=== PATIENT | female | born 1985 | race Caucasian/White ===

== ENCOUNTER 2019-12-26 00:19 | Outpatient (CLI) | payer BC, SELFPAY ==
[2019-12-26 18:28] LABS: SARS-CoV-2 RNA PCR Negative
== END 2019-12-26 00:20 | disposition home or self-care (01) ==
LOC: ANHCOVIDDT 00:19
PROVIDERS: PCP Family Medicine Sports Medicine; Visit Provider Podiatrist Foot & Ankle Surgery
DX: Z01.812 Encounter for preprocedural laboratory examination (principal); Z20.828 Contact with and (suspected) exposure to other viral communicable diseases
CPT/HCPCS: 87635; C9803; U0003

== ENCOUNTER 2019-12-28 04:02 | Day surgery (SDC) | payer BC, SELFPAY ==
[2019-12-18 14:02] VITALS: BMI 23.5
--- NOTE | 2019-12-27 10:13 | P.PNAN_ITS ---
Anes - Initial Pre Proc Eval Procedure: Operation Date: 12/28/19 07:30 Proposed Procedures p Lapidus Bunionectomy Left Foot, Reece Phalangeal Osteotomy Left Hallux - Varun Grimm JR, MD Date/Time: 12/27/19 10:13 Surgeon: Varun Grimm JR, MD Pre Op Diagnosis: Hallux Abducto Valgus Left Foot Patient Data Age: 34 Gender: F Height: 1.63 m Weight: 62.14 kg Allergies Allergy/AdvReac Type Severity Reaction Status Date / Time No Known Allergies Allergy Verified 12/28/19 06:15 Home Medications Medication Instructions Recorded Confirmed Type levothyroxine [Euthyrox] 88 mcg PO DAILY 12/18/19 12/28/19 History Patient hx anesthesia problems: none Family hx anesthesia problems: none [facility] Past Medical History Medical History (Updated 12/27/19 @ 10:13 by Yuri Stinson DO) Hypothyroidism Social History Social History Smoking status: Never smoker Living arrangements: with family Spiritual care concerns: No Anes - Eval Final PreProcedure Day of Procedure 12/27/19 10:13 Patient weight: normal Heart: regular rate and rhythm Lungs: clear to auscultation and normal air movement Airway: Mallampati scale class II Neurological: alert and oriented Last oral intake: >/= 8 hours ASA classification: II Emergent: no Anesthetic plan: proceed Anesthesia type and monitoring: general LMA and standard monitoring Informed Consent: The patient's anesthetic plan and its attendant risks and benefits were discussed with the patient/family/POA. Questions were solicited and answers provided to the satisfaction of the patient/family/POA.
--- NOTE | 2019-12-27 10:13 | WPDANESPNB ---
Anes - Peripheral Nerve Block Date/Time: 12/27/19 10:13 I have discussed with the patient/family/POA the placement of a peripheral nerve block for post-operative pain management, including associated risks, benefits, complications, and side effects. Alternative methods of post-operative analgesia were detailed. Questions were solicited and answers provided to the satisfaction of the patient/family/POA. Time-Out: A pre-procedural Time-Out was completed immediately before starting the procedure and confirmed: Patient Identification, Site, Procedure, Patient Position and the Availability of Requisite Equipment. Clinical Indications: Acute post-operative pain management requested by the operative surgeon. Nerve Block Insertion Note Anes-nerve block: posterior fossa sciatic left and adductor canal left Patient position: supine (for adductor canal) and other (right lateral for popliteal) Skin prep: chlorhexidine Needle: 22 gauge, stimulating, insulated echogenic needle. Needle length: 80 mm Technique: nerve stimulation lost at (mA) (for popliteal lost at 0.2) and ultrasound Injectate: bupivacaine 0.5% with epi 5 mcg/ml (20 mL for popliteal, 10 mL for adductor canal) Observations: tolerated well Complications: none Procedure start time:: 717 Procedure end time:: 722
[2019-12-28] VITALS (7 sets, daily range): BP systolic 110–121; BP diastolic 59–79; PULSE 65–100; RESP 14–18; TEMP 36.3–36.4; O2SAT 100
--- NOTE | ~2019-12-28 | XR_ITS ---
EXAMINATION: XR surgery orthopedic DATE: 12/28/2019 09:21 INDICATION: Left Lapidus bunionectomy, taken pharyngeal osteotomy left hallux. TECHNIQUE: Dorsal plantar and lateral fluoroscopic images of the left fore and midfoot were obtained during procedure performed by Dr. Grimm. Radiologist was not present for the imaging or procedure. The amount of fluoroscopy time used during this procedure was 2.8 minutes. COMPARISON: None. FINDINGS: Postoperative changes along the left first ray including bunionectomy with osteotomy at the medial he ad of the first metatarsal, first tarsal metatarsal arthrodesis with medial and dorsal plate and scre ws fixation, osteotomy at the base of the first proximal phalanx with medial sided staple fixation. A lignment of the first ray appears near-anatomic. No fractures. 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 Expected gas in the soft tissues at the operative beds. IMPRESSION: 1. Fluoroscopy utilized during orthopedic procedure along the left first ray. Reviewed, dictated and finalized at location A.
[2019-12-28] MEDS: LACTATED RINGERS 1,000 ML 30 ML IV CONT ×2 (06:37→09:50)
--- NOTE | 2019-12-28 07:01 | WPDHPUPDATE1 ---
History and Physical Update Update Date/Time: 12/28/19 07:01 History and Physical has been reviewed, including an updated exam of the patient. There are NO changes in the patient's condition. Risks, benefits, and alternatives have been discussed and questions answered. Patient agrees to proceed with procedure.
[2019-12-28] MEDS: ceFAZolin 2 GM/D5W 50 ML 2 GM/50 ML BAG IVPB (07:27)
[2019-12-28] MEDS: KETOROLAC 30 MG/ML VIAL (*BKC) 15 MG IV PUSH (07:43)
--- NOTE | 2019-12-28 09:48 | PM.OP ---
Procedure Note - Brief Procedure Note - Brief Date of procedure: 12/28/19 Pre-op diagnosis: Hallux Abducto Valgus Left Foot Post-op diagnosis: same Procedure performed: 1. Lapidus bunionectomy of the left foot 2. Reece phalangeal osteotomy left hallux Anesthesia: GLMA Surgeon: Varun Grimm JR, DPM Estimated blood loss (mL): 1 Complications: No immediate complications Condition: stable Disposition: same day
[2019-12-28] MEDS: ONDANSETRON INJ 4 MG/2 ML VIAL IV PUSH (11:02)
--- NOTE | 2019-12-28 14:23 | OP_ITS ---
DATE OF PROCEDURE: 12/28/2019 PREOPERATIVE DIAGNOSIS: Hallux abductovalgus deformity, left foot. POSTOPERATIVE DIAGNOSIS: Hallux abductovalgus deformity, left foot. PROCEDURE: 1. Lapidus bunionectomy of the left foot. 2. Reece phalangeal osteotomy of the left hallux. PATHOLOGY: None. ANESTHESIA: General with popliteal fossa block. HEMOSTASIS: Pneumatic ankle tourniquet at 250 mmHg. ESTIMATED BLOOD LOSS: Minimal. MATERIALS USED: One Lapiplasty 2-plate system with 8 locking screws from the Seedpost & Seedpaper System, one 8 mm Seedpost [employer] Seedpaper System compression Nitinol staple, 3-0 PDS, 2-0 Vicryl, 4-0 Vicryl, and 4-0 Monocryl. INJECTABLES: None. COMPLICATIONS: None. PROCEDURE IN DETAIL: Under mild sedation, the patient was brought into the operating room and placed on the operating table in the supine position. A pneumatic ankle tourniquet was placed about the patient's left ankle. Following general anesthesia and a previous popliteal fossa block, the left foot was then scrubbed, prepped, and draped in the usual aseptic manner. An Esmarch bandage was then used to examine the patient's left foot and the pneumatic ankle tourniquet was then inflated. Attention was directed to the dorsal aspect of the left 1st metatarsocuneiform joint to the left foot where an incision was made overlying the joint. The incision was approximately 4 cm in length. The incision was continued deep down through the subcutaneous tissues using sharp and blunt dissection. All bleeders were cauterized as necessary. At this point, the plantar medial aspect of the 1st metatarsal base was dissected free of its periosteum and capsular tissue. Next, the dorsal aspect of the 1st metatarsocuneiform joint was carefully dissected, exposing the entire base of the 1st metatarsal and anterior aspect of the medial cuneiform. A sagittal bone saw was used to feather the cartilage allowing free motion at the 1st metatarsocuneiform joint. Next, a small Steinmann pin was placed from medial to lateral across the base of the 1st metatarsal under fluoroscopy. Care was taken to make sure that complete reduction of the 1st intermetatarsal angle as well as frontal plane rotation of the 1st metatarsal head was achieved. At this point, a fulcrum was placed along the lateral aspect of the base of the 1st metatarsal in order to allow for complete correction of the three-dimensional deformity to that bunion. Next, a small 2 cm incision was made along the lateral aspect of the 1st metatarsophalangeal joint. At this point, the conjoined tendon of the adductor hallucis muscle was identified and transected. Next, a small capsular incision was made along the lateral aspect of the 1st metatarsophalangeal joint, freeing the fibular sesamoid both proximally, laterally, and distally. The track-bound hallux was noted to be reduced after a good capsular release. Next, the skin was reapproximated with 4-0 Monocryl in running subcuticular suture fashion technique. At this point, utilizing the provided Seedpost & Seedpaper Joint Preparation System, careful visualization of the joint was performed under fluoroscopy and the base of the 1st metatarsal articular cartilage as well as the anterior aspect of the medial cuneiform was resected utilizing the provided joint resection system. The position was off the position along the base of the 1st metatarsal and 2nd metatarsal through a separate stab incision. Complete 1st intermetatarsal angle reduction was performed as well as frontal plane rotation of the 1st metatarsal prior to cartilage resection. After the cartilage was resected, the joint was distracted, removing the articular surface from the 1st metatarsocuneiform joint. Next, a 2.0 mm drill bit was used to fenestrate the anterior aspect
== END 2019-12-28 11:55 | disposition home or self-care (01) ==
PROVIDERS: PCP Family Medicine Sports Medicine; Visit Provider Podiatrist Foot & Ankle Surgery
PROC: (CPT 28299; principal; 2019-12-28 07:30)
DX: M20.12 Hallux valgus (acquired), left foot (principal); G89.18 Other acute postprocedural pain; E03.9 Hypothyroidism, unspecified
CPT/HCPCS: 28297; 28298; 64445; C1713; J0690; J1100; J1885; J2250; J2405; J2704; J3010; J7120

== ENCOUNTER 2021-03-08 10:24 | Emergency (ER) | payer BC, SELFPAY ==
[2021-03-08 10:28] VITALS: BP 142/84; PULSE 107; RESP 18; TEMP 36.7; O2SAT 100
--- NOTE | 2021-03-08 11:14 | ED.ALLEREA ---
HPI - Allergic Reaction General Chief complaint: Allergic Reaction Stated complaint: Facial Swelling Time Seen by Provider: 03/08/21 11:01 Source: patient Mode of arrival: ambulatory Limitations: no limitations History of Present Illness HPI narrative: This is a 35 year old female that presents to the ER for facial swelling. Reports history of recent hives. She has been seeing [facility] in [place]. She has mostly been controlled on Zyrtec and Pepcid daily. Reports last night she started to feel some swelling in her lips. This morning when she woke up it was much worse. She also has diffuse hives. She took 50 mg of Benadryl at 9 AM without relief which prompted her to be seen. Denies dysphagia or dyspnea. Related Data Home Medications Medication Instructions Recorded Confirmed levothyroxine [Euthyrox] 88 mcg PO DAILY 12/18/19 12/28/19 Allergies Allergy/AdvReac Type Severity Reaction Status Date / Time No Known Allergies Allergy Verified 03/08/21 10:32 Review of Systems Review of Systems: CONSTITUTIONAL: Denies fever RESPIRATORY: Denies dyspnea. SKIN: Reports rash and itching. All systems reviewed & are unremarkable except as noted in HPI and below PMFSH Past Medical History Medical History (Updated 03/08/21 @ 14:30 by Bianca Castillo PA-C) Hypothyroidism Social History Social History Smoking status: Never smoker Spiritual care concerns: No Exam Narrative: GENERAL: Well-appearing, well-nourished, and in no acute distress. HEAD: Normocephalic, atraumatic. Moderate lip swelling noted EYES: EOMI. ENT: Nares clear, no rhinorrhea or epistaxis. Mucous membranes moist. Oropharynx without tonsillar hypertrophy exudate or other lesions. No tongue or throat swelling NECK: Supple. No adenopathy or masses. CHEST: Clear to auscultation. No respiratory distress. No wheezes rales or rhonchi HEART: Regular rate and rhythm. No murmur heard. Normal peripheral pulses. EXTREMITIES: Normal range of motion. No edema. SKIN: Warm, dry. Diffuse hives NEURO: No focal deficits. Alert and oriented x3. PSYCH: Normal mood and affect Course Consultations Consultation #1: Spoke with her puppet maker, Dr. Segura. Would like patient to be started on prednisone taper. She will be called tomorrow for follow-up. Date: 03/08/21 Time: 14:29 Vital Signs Vital signs: Vital Signs Temperature 98.0 F 03/08/21 10:28 Pulse Rate 107 H 03/08/21 10:28 Respiratory Rate 18 03/08/21 10:28 Blood Pressure 142/84 H 03/08/21 10:28 Pulse Oximetry 100 03/08/21 10:28 Temperature 98.0 F 03/08/21 10:28 Pulse Rate 95 03/08/21 13:26 Respiratory Rate 18 03/08/21 13:26 Blood Pressure 112/77 03/08/21 13:26 Pulse Oximetry 98 03/08/21 13:26 MDM - Allergic Reaction MDM Narrative Medical decision making narrative: Patient presents to the emergency department for hives and facial swelling since last night. Lungs are clear on exam. She denies any dysphagia or dyspnea. No swelling inside the mouth or throat. She did have some swelling of her lips and around her right eye initially. Patient given Solu-Medrol, Pepcid, and loratadine initially with some improvement. Patient then given dose of Benadryl with much improvement. Her hives are clear. No swelling around the eyes. She does still just have some mild swelling of the upper lip. Spoke with her puppet maker, Dr. Segura. Would like patient to be started on prednisone taper. She will be called tomorrow for follow-up. Patient is stable and felt appropriate for further outpatient evaluation. She was given warnings to return to the ER Critical Care Time Critical Care Time Critical Care Time: No Discharge Plan Discharge Clinical Impression: Urticaria Patient Disposition: Home, Self-Care Condition: Stable Instructions: Urticaria (ED) Additional Instructions: Return to the emergency department if you experience dif
[2021-03-08 11:17] VITALS: BP 103/82; PULSE 81; RESP 18; O2SAT 99
[2021-03-08] MEDS: FAMOTIDINE 20 MG/2 ML VIAL IV PUSH (11:17)
[2021-03-08] MEDS: LORATADINE 10 MG TABLET PO (11:17)
[2021-03-08] MEDS: methylPREDNISolone SOD SUCC 125 MG VIAL IV PUSH (11:18)
[2021-03-08 13:26] VITALS: BP 112/77; PULSE 95; RESP 18; O2SAT 98
[2021-03-08] MEDS: diphenhydrAMINE HCl INJ 50 MG/ML VIAL IV PUSH (13:26)
== END 2021-03-08 14:46 | disposition home or self-care (01) ==
PROVIDERS: Emergency Provider Emergency Medicine; PCP Family Medicine Sports Medicine
DX: L50.9 Urticaria, unspecified (principal); E03.9 Hypothyroidism, unspecified
CPT/HCPCS: 96374; 96375; 99284; A9270; J1200; J2930

== ENCOUNTER 2021-04-23 11:49 | Outpatient (CLI) | payer OTHER, SELFPAY ==
--- NOTE | ~2021-04-23 | MMUS_ITS ---
EXAMINATION: MM diagnostic maryan BI w joel, US breast BI complete HISTORY: Bloody right nipple discharge one time. TECHNIQUE: Additional 3-D tomosynthesis images of the breasts were performed and synthetic 2-D images were generated. CAD analysis was submitted and interpreted. High resolution complete bilateral breas t ultrasound was performed. COMPARISON: None BREAST PARENCHYMAL COMPOSITION: The breasts are heterogenously dense, which may obscure small masses FINDINGS: MAMMOGRAPHIC FINDINGS: Bilateral symmetric sternalis muscle noted medially on CC views. There are no suspicious masses, calc ifications or architectural distortion in either breast to suggest malignancy. ULTRASOUND: Complete bilateral US of all 4 quadrants of the breasts and retroareolar region was reviewed. Normal heterogeneous echotexture without focal solid or cystic mass. IMPRESSION: 1. No evidence for malignancy in either breast. No findings to account for bloody nipple discharge. 2. Recommend further evaluation with ductogram or MRI of the breasts for further evaluation of nipple discharge. BI-RADS Category 0: Incomplete: Needs additional imaging evaluation. Reviewed, dictated and finalized at location A. OL JUDGE IMPRESSION: 1. No evidence for malignancy in either breast. No findings to account for bloo dy nipple discharge. 2. Recommend further evaluation with ductogram or MRI of the breasts for furthe r evaluation of nipple discharge. BI-RADS Category 0: Incomplete: Needs additional imaging evaluation.
== END 2021-04-23 11:50 | disposition home or self-care (01) ==
LOC: ANHIMG 11:54
PROVIDERS: PCP Family Medicine Sports Medicine; Visit Provider Obstetrics & Gynecology
DX: N64.4 Mastodynia (principal); R92.8 Other abnormal and inconclusive findings on diagnostic imaging of breast
CPT/HCPCS: 76641; 77062; 77066; G0279

== ENCOUNTER 2022-04-05 14:18 | Observation (INO) | payer OTHER, SELFPAY ==
[2022-04-05] VITALS (7 sets, daily range): BP systolic 101–130; BP diastolic 56–77; PULSE 73–121; RESP 16–18; TEMP 36.6–36.7; O2SAT 100; BMI 22.1
--- NOTE | ~2022-04-05 | CT_ITS ---
EXAMINATION: CT abdomen pelvis w con DATE: 04/05/2022 16:32 INDICATION: rlq abd pain TECHNIQUE: Computed tomography (CT) of the abdomen and pelvis was performed with 100 mL Omnipaque-350 intravenous contrast. Automated exposure control and iterative reconstruction technique were employe d. The dose-length product was 247.67 mGy-cm. COMPARISON: None. FINDINGS: Lower thorax: Minimal dependent atelectasis Liver: Normal. Biliary/Gallbladder: Gallbladder is normal. No bile duct dilation. Pancreas: No mass or duct dilation. Spleen: Normal. Adrenals:No mass. Kidneys: Subcentimeter left lower pole hypodensity, too small to characterize but most likely represe nts a cyst. No suspicious mass, stone, or hydronephrosis. GI tract: Distal esophageal and gastric wall edema as can be seen with esophagitis/gastritis. No smal l or large bowel dilation. Dilated appendix, with surrounding inflammatory change. Intact mucosa. Mesentery/Peritoneum: No ascites, mass, or free air. Retroperitoneum: No mass. Pelvis: Pelvic organs are within normal limits. Small volume free pelvic fluid, within physiologic ra nge. Soft Tissues: Soft tissues and body wall unremarkable. Bones: No acute osseous finding. IMPRESSION: Acute uncomplicated appendicitis. Reviewed, dictated and finalized at location K. TER AND REWINDER MACHINE OPERATOR
[2022-04-05 16:09] LABS: Basophils Percent Auto 0.1 % (0.2-1.2); Hematocrit 37.2 % (37.0-47.0); Hemoglobin 11.3 g/dL (12.0-15.0); Immature Granulocyte Absolute 0.03 K/mm3 (0.00-0.031); Immature Granulocyte Percent A 0.3 % (0-0.5); Lymphocytes Absolute Auto 1.06 K/mm3 (0.9-3.2); Lymphocytes Percent Auto 9.2 % (18.3-44.2); Mean Corpuscular HGB Conc 30.4 g/dl (32-36); Mean Corpuscular Hemoglobin 23.7 pg (26-34); Mean Corpuscular Volume 78.2 fl (80-100); Mean Platelet Volume 10.3 fl (7.4-10.4); Monocytes Absolute Auto 1.2 K/mm3 (0.1-0.6); Monocytes Percent Auto 10.6 % (2.6-8.5); Neutrophils Absolute Auto 9.2 K/mm3 (1.3-6.7); Neutrophils Percent Auto 79.8 % (45.5-73.1); Platelet Count Result 322 k/mm3 (150-375); Red Blood Count 4.76 M/mm3 (4.2-5.4); Red Cell Distribution Width 18.7 % (11.5-14.5); White Blood Count 11.5 K/mm3 (4.5-10.0)
[2022-04-05 16:11] LABS: Influenza A QL RT-PCR Negative (Negative); Influenza B QL RT-PCR Negative (Negative); SARS-CoV-2 RNA PCR Negative
[2022-04-05 16:12] LABS: Appearance Urine Cloudy (Clear); Bilirubin Urine Negative (Negative); Blood Urine Trace-Intact (Negative); Glucose Urine UA Negative (Negative); Ketones Urine Negative (Negative); Leukocyte Esterase Ur 1+ LEU/UL (Negative); Nitrate Urine Negative (Negative); Protein Urine 1+ mg/dL (Negative); Specific Grav Ur >= 1.030 (1.001-1.035); Urobilinogen Urine 0.2 mg/dL (<2.0)
[2022-04-05 16:16] LABS: Add Urine Microscopic? YES; Bacteria Urine Trace /hpf; Mucus Urine Heavy /lpf; RBC Urine 21-50 /hpf (0-2); Squamous Epithelial Cell Urine Many /hpf (Few); WBC Clumps Urine Present /HPF; WBC Urine 51-75 /hpf
[2022-04-05] MEDS: SODIUM CHLORIDE 0.9% IV 1,000 ML 999 ML IV CONT (16:16)
[2022-04-05] MEDS: MORPHINE SULFATE (*CRX) 4 MG/ML INJ IV PUSH ×2 (16:16→18:59)
[2022-04-05] MEDS: ONDANSETRON INJ 4 MG/2 ML VIAL IV PUSH ×2 (16:16→20:52)
[2022-04-05 16:18] LABS: Alanine Aminotransferase 26 U/L (6-35); Albumin Level 4.8 g/dL (3.5-5.1); Alkaline Phosphatase 61 U/L (38-126); Anion Gap 7 mmol/L (8-16); Aspartate Amino Transferase 27 U/L (14-36); Bilirubin,Total 0.9 mg/dL (0.2-1.3); Blood Urea Nitrogen 9 mg/dL (7-17); Calcium 9.2 mg/dL (8.4-10.2); Carbon Dioxide 26 mmol/L (22-30); Chloride 106 mmol/L (98-107); Estimated CRCL calculation 87 ml/min; Estimated Glomerular Filt Rate > 60; Glucose 118 mg/dL (65-110); Lipase 104 U/L (23-300); Potassium 4.2 mmol/L (3.4-5.0); Sodium 139 mmol/L (137-145)
[2022-04-05 16:33] LABS: Color Urine Yellow (Yellow)
--- NOTE | 2022-04-05 16:50 | ED.ABDPAIN ---
HPI - Abdominal Pain General Chief Complaint: Nausea/Vomiting/Diarrhea Stated Complaint: abdominal pain, vomiting, headache, chills Time Seen by Provider: 04/05/22 16:08 History of Present Illness HPI narrative: Pt presents with crampy lower abdominal pain and nausea and vomiting starting at 0300 last night. Pt says the pain has localized in her RLQ and she has vomited several times. Pt denies fever or diarrhea. Related Data Home Medications Medication Instructions Recorded Confirmed levothyroxine 88 mcg tablet 88 mcg PO DAILY 12/18/19 12/28/19 (Euthyrox) sertraline 100 mg tablet (Zoloft) 100 mg PO DAILY 11/10/21 Allergies Allergy/AdvReac Type Severity Reaction Status Date / Time No Known Allergies Allergy Verified 04/05/22 17:11 Review of Systems Review of Systems: All systems reviewed & are unremarkable except as noted in HPI and below PMFSH Past Medical History Medical History Hypothyroidism Right ovarian cyst Surgical History Surgical History History of gynecological procedure D&C - missed AB History of orthopedic surgery bunion removed from L foot - 12/2019 Social History Social History (Updated 11/10/21 @ 14:56 by Ayla Mancera MA) Smoking status: Never smoker Alcohol intake: never Substance use: never Substance use type: does not use Gender identity (if verbalized by the patient): Female Sexual Orientation (if Verbalized by the Patient): Straight or Heterosexual Spiritual care concerns: No Exam Const: General: healthy appearing Nutritional Appearance: well nourished Orientation/consciousness: patient oriented x3 Limitations: no limitations Eyes: Pupils: Equal, round and reactive pupils present EOM: EOMs intact bilaterally Resp: Effort & Inspection: normal respiratory effort Auscultation: clear to auscultation bilaterally Cardio: Rate: regular rate Rhythm: regular rhythm GI: GI Palp: Yes Soft to palpation and Yes Tenderness to palpation present (GI) (rlq at [facility]) Auscultation: normal bowel sounds Skin: General skin exam: normal color Rashes: no rashes Neuro: General: patient oriented x3, moves all extremities, no meningeal signs and no focal motor deficits Speech: normal speech Extrem: General: normal to inspection and no clubbing, cyanosis or edema Psych: Mental Status: mental status grossly normal Affect: normal affect Attitude: cooperative Course Vital Signs Vital signs: Vital Signs Temperature 98.1 F 04/05/22 14:52 Pulse Rate 121 H 04/05/22 14:52 Respiratory Rate 18 04/05/22 14:52 Blood Pressure 130/77 04/05/22 14:52 Pulse Oximetry 100 04/05/22 14:52 Oxygen Delivery Room Air 04/05/22 14:52 Temperature 98.1 F 04/05/22 14:52 Pulse Rate 90 04/05/22 17:51 Respiratory Rate 18 04/05/22 17:51 Blood Pressure 116/75 04/05/22 17:51 Pulse Oximetry 100 04/05/22 17:51 Oxygen Delivery Room Air 04/05/22 14:52 MDM - Abdominal Pain MDM Narrative Medical decision making narrative: ct shows uncomplicated appendicitis, d/w dr miller, admit to him start on zosyn and will see in morning for likely appendectomy. can give clear liquids tonight Differential Diagnosis Differential diagnosis: Likely abdominal pain, acute appendicitis, constipation, gastroenteritis and small bowel obstruction Lab Data Attestation: I reviewed the patient's lab results. 04/05/22 15:59 04/05/22 15:59 Labs: Lab Results 04/05/22 04/05/22 04/05/22 Range/Units 15:23 15:59 15:59 WBC 11.5 H (4.5-10.0) K/mm3 RBC 4.76 (4.2-5.4) M/mm3 Hgb 11.3 L (12.0-15.0) g/dL Hct 37.2 (37.0-47.0) % MCV 78.2 L (80-100) fl MCH 23.7 L (26-34) pg MCHC 30.4 L (32-36) g/dl RDW 18.7 H (11.5-14.5) % Plt Count 322 (150-375) k/mm3 MPV 10.3 (7.4-10.4) fl Immature Gran % (Auto)
[2022-04-05] MEDS: AMPICILLIN SULB 3 GM/NS 100 ML 3 GM/100 ML VIAL IVPB ×2 (17:50→23:15)
[2022-04-05] MEDS: LACTATED RINGERS 1,000 ML 125 ML IV CONT (18:13)
--- NOTE | 2022-04-05 20:23 | PC.NURSE ---
report received from ED RN connie Reich to arrive at floor soon
[2022-04-06] VITALS (15 sets, daily range): BP systolic 100–133; BP diastolic 58–84; PULSE 70–105; RESP 16–22; TEMP 36.1–37.2; O2SAT 97–100
[2022-04-06] MEDS: LACTATED RINGERS 1,000 ML 125 ML IV CONT ×2 (02:15→10:54)
[2022-04-06] MEDS: AMPICILLIN SULB 3 GM/NS 100 ML 3 GM/100 ML VIAL IVPB ×3 (05:20→17:14)
--- NOTE | 2022-04-06 10:09 | PM.IMHP ---
H&P: HPI History of Present Illness Date/Time: 04/06/22 10:09 Chief Complaint: RLQ pain Narrative: This is a 36 yo woman who presented to the ED yesterday with RLQ pain that started the day before. Her pain was progressively worsening and she was experiencing nausea and vomiting. She denied any fevers or chills. She has never experienced pain like this before. Her pain was generalized and felt like she had to have a BM at first, then it localized to the RLQ. Review of Systems Review of Systems: All systems reviewed & are unremarkable except as noted in HPI and below Constitutional: Constitutional: Denies chills and Denies fever(s) Eyes: Eyes: Denies change in vision ENT: Denies hearing loss, Denies neck pain and Denies sore throat Cardiovascular: Cardiovascular: Denies chest pain and Denies dyspnea Respiratory: Respiratory: Denies cough, Denies dyspnea and Denies wheezing Gastrointestinal: Gastrointestinal: Reports as per HPI Genitourinary: Genitourinary: Denies hematuria and Denies dysuria Musculoskeletal: Musculoskeletal: Denies arthralgias, Denies joint swelling and Denies neck pain Allergic/Immunologic: Allergic/Immunologic: Denies wheezing PMFSH Past Medical History Medical History Hypothyroidism Right ovarian cyst Surgical History Surgical History History of gynecological procedure D&C - missed AB History of orthopedic surgery bunion removed from L foot - 12/2019 Social History Social History Smoking status: Never smoker Second hand tobacco smoke exposure: No Alcohol intake: never Substance use: never Substance use type: does not use Lack of Transportation: No Lack of Food: Never True Current Housing: Decline to Answer Concerned About Future Housing: No Difficulty Paying Gas/Electric Bills: No Difficulty Paying for Meds: No Currently Unemployed: No Education: Decline to Answer Difficulty w/ Childcare or Family Care: No Gender identity (if verbalized by the patient): Female Sexual Orientation (if Verbalized by the Patient): Straight or Heterosexual Spiritual care concerns: No Meds Home Medications and Allergies Home Medications Medication Instructions Recorded Confirmed Type levothyroxine 88 mcg tablet 88 mcg PO DAILY 12/18/19 04/05/22 History (Euthyrox) sertraline 100 mg tablet (Zoloft) 100 mg PO DAILY 11/10/21 04/05/22 History Allergies Allergy/AdvReac Type Severity Reaction Status Date / Time No Known Allergies Allergy Verified 04/05/22 17:11 Vital Signs Vital Signs - 24 hr 04/05/22 14:52 04/05/22 16:20 04/05/22 17:51 Temperature 36.7 C Pulse Rate 121 H 93 90 Respiratory Rate 18 18 18 Blood Pressure 130/77 113/66 116/75 Pulse Oximetry 100 100 100 Oxygen Delivery Room Air 04/05/22 18:42 04/05/22 20:23 04/05/22 20:39 Temperature 36.6 C Pulse Rate 75 74 73 Respiratory Rate 16 18 Blood Pressure 113/65 101/56 L 116/69 Pulse Oximetry 100 100 100 Oxygen Delivery 04/05/22 20:41 04/06/22 04:39 04/06/22 08:00 Temperature 36.6 C Pulse Rate 81 Respiratory Rate 18 Blood Pressure 100/58 L Pulse Oximetry 100 100 Oxygen Delivery Room Air Room Air Exam Const: General: alert; No acute distress Orientation/consciousness: patient oriented x3 Limitations: no limitations HENMT: Head: normocephalic and atraumatic Ears: hearing grossly normal bilaterally Face/Nose/Sinus: Normal external nose present and Normal nares present Mouth: Yes Normal oral and palatal mucosa present and Yes moist mucous membranes Eyes: General: appearance normal, both eyes and all related structures Conjunctivae: conjunctivae normal Sclera: sclerae normal Pupils: Equal, round and reactive pupils present EOM: EOMs intact bilaterally Neck: Neck: normal vis
--- NOTE | 2022-04-06 10:16 | WPDHPUPDATE1 ---
History and Physical Update Update Date/Time: 04/06/22 10:16 History and Physical has been reviewed, including an updated exam of the patient. There are NO changes in the patient's condition. Risks, benefits, and alternatives have been discussed and questions answered. Patient agrees to proceed with procedure.
[2022-04-06] MEDS: ONDANSETRON INJ 4 MG/2 ML VIAL IV PUSH (11:00)
--- NOTE | 2022-04-06 12:30 | WPDANESEPPF ---
Anes - Initial Pre Proc Eval Procedure: Operation Date: 04/06/22 13:00 Proposed Procedures p Laparoscopic Appendectomy - Josse Alaniz DO Date/Time: 04/06/22 12:30 Surgeon: Josse Alaniz DO Pre Op Diagnosis: appendicitis Patient Data Age: 36 Gender: F Height: 1.65 m Weight: 60.4 kg Last Vital Signs Temp 36.6 C 04/06/22 04:39 Pulse 81 04/06/22 04:39 Resp 18 04/06/22 04:39 BP 100/58 L 04/06/22 04:39 Pulse Ox 100 04/06/22 04:39 O2 Del Method Room Air 04/06/22 08:00 Allergies Allergy/AdvReac Type Severity Reaction Status Date / Time No Known Allergies Allergy Verified 04/05/22 17:11 Home Medications Medication Instructions Recorded Confirmed Type levothyroxine 88 mcg tablet 88 mcg PO DAILY 12/18/19 04/05/22 History (Euthyrox) sertraline 100 mg tablet (Zoloft) 100 mg PO DAILY 11/10/21 04/05/22 History Laboratory Tests 04/05/22 04/05/22 04/05/22 15:23 15:59 15:59 WBC 11.5 K/mm3 H K/mm3 (4.5-10.0) RBC 4.76 M/mm3 M/mm3 (4.2-5.4) Hgb 11.3 g/dL L g/dL (12.0-15.0) Hct 37.2 % % (37.0-47.0) MCV 78.2 fl L fl (80-100) MCH 23.7 pg L pg (26-34) MCHC 30.4 g/dl L g/dl (32-36) RDW 18.7 % H % (11.5-14.5) Plt Count 322 k/mm3 k/mm3 (150-375) MPV 10.3 fl fl (7.4-10.4) Immature Gran % (Auto) 0.3 % % (0-0.5) Neut % (Auto) 79.8 % H % (45.5-73.1) Lymph % (Auto) 9.2 % L % (18.3-44.2) [place] % (Auto) 10.6 % H % (2.6-8.5) Eos % (Auto) 0.0 % % (0-4.4) Baso % (Auto) 0.1 % L % (0.2-1.2) Lymph # (Auto) 1.06 K/mm3 K/mm3 (0.9-3.2) [place] # (Auto) 1.2 K/mm3 H K/mm3 (0.1-0.6) Eos # (Auto) 0.0 K/mm3 K/mm3 (0-0.3) Baso # (Auto) 0.0 K/mm3 K/mm3 (0.0-0.1) Abs Immat Gran (auto) 0.03 K/mm3 K/mm3 (0.00-0.031) Absolute Neuts (auto) 9.2 K/mm3 H K/mm3 (1.3-6.7) Absolute Nucleated RBC 0.0 K/mm3 K/mm3 (0.0-0.012) Nucleated RBC % 0.0 % % (0.0-0.2) Sodium Potassium Chloride Carbon Dioxide Anion Gap BUN Creatinine Estim Creat Clear Calc Estimated GFR Glucose Calcium Total Bilirubin AST ALT Alkaline Phosphatase Total Protein Albumin Lipase Urine Color Yellow (Yellow) Urine Appearance Cloudy H (Clear) Urine pH 6.0 (5.0-9.0) Ur Specific [place] >= 1.030 (1.001-1.035) Urine Protein 1+ mg/dL H mg/dL (Negative) Urine Glucose (UA) Negative mg/dL mg/dL (Negative) Urine Ketones Negative mg/dL mg/dL (Negative) Ur Blood (Man) Trace-intact (Negative) Urine Nitrate Negative (Negative) Urine Bilirubin Negative (Negative) Urine Urobilinogen 0.2 mg/dL mg/dL (<2.0) Leukocyte Esterase Rfl 1+ LUCILA/UL H LUCILA/UL (Negative) Urine RBC 21-50 /hpf H /hpf (0-2) Urine WBC 51-75 /hpf H /hpf Urine WBC Clumps Present /HPF H /HPF (None) Ur Squamous Epith Cells Many /hpf H /hpf (Few) Urine Bacteria Trace /hpf /hpf Urine Mucus Heavy /lpf H /lpf Influenza A (RT-PCR) Negative (Negative) Influenza B (RT-PCR) Negative (Negative) SARS-CoV-2 RNA (RT-PCR) Negative 04/05/22 15:59 WBC RBC Hgb Hct MCV MCH MCHC RDW Plt Count MPV Immature Gran % (Auto) Neut % (Auto) Lymph % (Auto) [place] % (Auto) Eos % (Auto) Baso % (Auto) Lymph # (Auto) [place] # (Auto) Eos # (Auto) Baso
[2022-04-06] MEDS: BUPIVACAINE/EPINEPHRINE 0.5% 10 ML VIAL 30 ML INFILTRATE (13:30)
--- NOTE | 2022-04-06 13:52 | W.PM.PROC2 ---
Procedure Note - Detailed Date of Procedure 04/06/22 Pre-op Diagnosis Acute appendicitis Post-op Diagnosis Same Procedure Performed Laparoscopic appendectomy Surgeon Josse Alaniz, DO Anesthesia General and Local (0.5% bupivacaine with epinephrine) Indications This is a 36-year-old woman who presented with right lower quadrant pain that started 1 day ago. She had never experienced anything like this in the past. Her pain was mild generalized pain 1st that eventually localized to the right lower quadrant. She had nausea and vomiting but denied any fevers or chills. She has never experienced anything like this before. CT in the emergency department showed evidence of acute appendicitis. Her white blood count was slightly elevated at 11.5. Discussions were made with the patient about treatment options and decision was made to proceed with laparoscopic appendectomy, possible open. Findings Laparoscopic appendectomy was performed. The appendix appeared dilated and inflamed, but there was no evidence of perforation or abscess. The base of the appendix appeared healthy and viable. The appendix was removed and sent to the lab for pathology. Description of Procedure Procedure as well as risks, benefits, and alternatives were explained to the patient. The patient agreed to proceed. Written consent was obtained and placed in chart prior to procedure. The patient was brought back to surgical suite. She was placed supine on operating table. Time-out was done to confirm the patient and procedure. The patient was then intubated by the Anesthesia Department. Her abdomen was prepped and draped in sterile fashion using chlorhexidine prep. A 12 mm incision was made at the inferior portion of the umbilicus. Blunt dissection was carried out down to the linea alba. The linea alba was then incised using a 15 blade scalpel. Then bluntly entered into the peritoneal cavity. A 12 mm trocar was then inserted, and carbon dioxide insufflation was used to create a pneumoperitoneum. The camera was inserted and the abdomen was inspected. No immediate abnormalities were identified. The patient was then placed in slight Trendelenburg position and rotated to the left. A 5 mm incision was made in the suprapubic region in midline and a 5 mm trocar was inserted under direct visualization. A 5 mm incision was made in the left lower quadrant and a 5 mm trocar was inserted under direct visualization. The right lower quadrant was carefully inspected. The cecum was identified and then this was traced back to the appendix. The appendix was identified and grasped at the mesoappendix and lifted anteriorly. Careful blunt dissection was carried out at the base of the appendix through the mesoappendix using a [place] grasper. An Endo-GIOVANI 45 mm blue load stapler was then advanced across the base of the appendix and clamped and fired. A white reload was then clamped across the mesoappendix and fired. This freed up our appendix completely. It was then placed in an EndoCatch bag and removed through the umbilical port. The staple lines were then inspected. Hemostasis appeared adequate and the staple lines appeared secure. The area was then irrigated with sterile saline. The pelvis was then carefully inspected and irrigated with sterile saline as well and the remainder of the abdomen was carefully inspected. The patient was then flattened out in bed. One final inspection was made around the abdominal cavity and no other abnormalities were seen. The ports were then removed under direct visualization. The camera was removed and the pneumoperitoneum was released. The fascia of the umbilical incision was reapproximated using an 0 Vicryl [id number] suture. 0.5% bupivacaine with epinephrine was infiltrated locally around each of the incisions. The skin of the incisions was then approximated using 4-0 Monocryl subcuticular suture and Exofin glue was applied on top. The patient was the
[2022-04-06] MEDS: LACTATED RINGERS 1,000 ML 30 ML IV CONT ×2 (13:53)
[2022-04-06] MEDS: fentaNYL CITRATE INJ (*CRX) 100 MCG/2 ML VIAL 25 MCG IV PUSH ×4 (14:23→14:33)
--- NOTE | 2022-04-06 14:43 | SUR.PHASEI ---
faxed report to 3 medical and notified floor staff
[2022-04-06] MEDS: HYDROcodone/acetaminophen (*CRX) 7.5-325 MG TABLET 1 TAB PO ×2 (15:46→19:34)
[2022-04-06] MEDS: LACTATED RINGERS 1,000 ML 100 ML IV CONT (15:50)
[2022-04-07 01:09] VITALS: BP 110/59; PULSE 70; RESP 18; TEMP 36.7; O2SAT 98
[2022-04-07] MEDS: HYDROcodone/acetaminophen (*CRX) 7.5-325 MG TABLET 1 TAB PO (02:07)
[2022-04-07 05:09] VITALS: BP 109/59; PULSE 70; RESP 16; TEMP 36.7; O2SAT 100
[2022-04-07 06:00] VITALS: BP 108/61; PULSE 70; RESP 16; TEMP 36.7; O2SAT 98
[2022-04-07] MEDS: LEVOTHYROXINE SODIUM 88 MCG TABLET PO (06:04)
[2022-04-07] MEDS: AMPICILLIN SULB 3 GM/NS 100 ML 3 GM/100 ML VIAL IVPB ×2 (06:06)
--- NOTE | 2022-04-07 08:01 | PM.DS ---
DS: Admitting Diagnosis Discharge Date 04/07/2022 Admitting Diagnosis Acute appendicitis DS: Discharge Diagnosis Discharge Diagnosis (1) Acute appendicitis: Code(s): K35.80 - Unspecified acute appendicitis Status: Acute DS: Summary Hospital Course Reason for hospitalization: Acute appendicitis Hospital Course: This is a 36-year-old woman who presented to the emergency department on 04/05/2022 with right lower quadrant pain. She was noted to have a white blood count slightly elevated at 11.[address] showed evidence of acute appendicitis. She was admitted for further treatment. She was started on Unasyn IV and was kept NPO after midnight. The following morning she was still experiencing moderate right lower quadrant pain and guarding. I discussed antibiotic treatment versus surgical treatment and patient wanted to proceed with surgery. She underwent laparoscopic appendectomy on 04/06. Surgery was uncomplicated and she was returned to the surgical floor postoperatively. Diet and activity were advanced as tolerated. She was discharged on 04/07. Status at Discharge Functional status at discharge: independent ambulation Overall status at discharge: patient is progressing back to baseline Time Spent with Patient Time attestation: Total time spent providing and/or coordinating discharge services: Time spent: Less than 30 minutes Exam Narrative: Unchanged from preoperative exam DS: Data Data Completed and Pending Pending studies at discharge: Pending at discharge 04/06/22 13:23 Surgical [PTH] Routine Labs on day of discharge: Labs from last 24 hours 04/05/22 04/05/22 04/05/22 15:59 15:59 15:59 WBC 11.5 H RBC 4.76 Hgb 11.3 L Hct 37.2 MCV 78.2 L MCH 23.7 L MCHC 30.4 L RDW 18.7 H Plt Count 322 MPV 10.3 Immature Gran % (Auto) 0.3 Neut % (Auto) 79.8 H Lymph % (Auto) 9.2 L [place] % (Auto) 10.6 H Eos % (Auto) 0.0 Baso % (Auto) 0.1 L Lymph # (Auto) 1.06 [place] # (Auto) 1.2 H Eos # (Auto) 0.0 Baso # (Auto) 0.0 Abs Immat Gran (auto) 0.03 Absolute Neuts (auto) 9.2 H Absolute Nucleated RBC 0.0 Nucleated RBC % 0.0 Sodium 139 Potassium 4.2 Chloride 106 Carbon Dioxide 26 Anion Gap 7 L BUN 9 Creatinine 0.70 Estim Creat Clear Calc 87 Estimated GFR > 60 Glucose 118 H Calcium 9.2 Total Bilirubin 0.9 AST 27 ALT 26 Alkaline Phosphatase 61 Total Protein 8.0 Albumin 4.8 Lipase 104 Urine Color Yellow Urine Appearance Cloudy H Urine pH 6.0 Ur Specific [place] >= 1.030 Urine Protein 1+ H Urine Glucose (UA) Negative Urine Ketones Negative Ur Blood (Man) Trace-intact Urine Nitrate Negative Urine Bilirubin Negative Urine Urobilinogen 0.2 Leukocyte Esterase Rfl 1+ H Urine RBC 21-50 H Urine WBC 51-75 H Urine WBC Clumps Present H Ur Squamous Epith Cells Many H Urine Bacteria Trace Urine Mucus Heavy H Influenza A (RT-PCR) Influenza B (RT-PCR) SARS-CoV-2 RNA (RT-PCR) 04/05/22 15:23 WBC RBC Hgb Hct MCV MCH MCHC RDW Plt Count MPV Immature Gran % (Auto) Neut % (Auto) Lymph % (Auto) [place] % (Auto) Eos % (Auto) Baso % (Auto) Lymph # (Auto) [place] # (Auto) Eos # (Auto) Baso # (Auto) Abs Immat Gran (auto) Absolute Neuts (auto) Absolute Nucleated RBC Nucleated RBC % Sodium Potassium Chloride Carbon Dioxide Anion Gap BUN Creatinine Estim Creat Clear Calc Estimated GFR Glucose Calcium Total Bilirubin AST ALT Alkaline Phosphatase Total Protein Albumin Lipase Urine Color Urine Appearance Urine pH Ur Specific [place] Urine Protein Urine Glucose (UA) Urine Ketones Ur Blood (Man) Urine Nitrate Urine Bilirubin Urine Urobilinogen Leukocyte Esterase Rfl Urine RBC Urine WBC Urine WBC Clumps Ur Squamous Epith Cells Urine Bacteria
[2022-04-07] MEDS: SERTRALINE HCL 50 MG TABLET 100 MG PO (08:12)
[2022-04-07] MEDS: HYDROcodone/acetaminophen (*CRX) 5-325 MG TABLET 1 TAB PO (08:15)
--- NOTE | 2022-04-07 08:39 | WPDANESPN ---
Anes - Prog Note Post-Op Date/Time: 04/07/22 08:39 Cardiovascular status: normal Respiratory status: normal Airway patency: baseline Mental status: baseline Post-Op hydration status: normal Vital Signs: Last Vital Signs Temp 98.0 F 04/07/22 06:00 Pulse 70 04/07/22 06:00 Resp 16 04/07/22 06:00 BP 108/61 04/07/22 06:00 Pulse Ox 98 04/07/22 06:00 O2 Del Method Room Air 04/07/22 08:00 O2 Flow Rate 6 04/06/22 14:30 Pain Score (VAS): 1 I/O: Intake & Output 04/06/22 04/07/22 04/07/22 23:59 07:59 15:59 Intake Total 340 1100 Balance 340 1100 Laboratory Tests 04/05/22 15:59 04/05/22 15:59 Patient Feedback: Patient satisfied with anesthetic care.
== END 2022-04-07 10:00 | disposition home or self-care (01) ==
LOC: ANHED 17:36 → ANH3MED 19:58
PROVIDERS: Emergency Medicine; Admitting Provider Surgery; Emergency Provider Emergency Medicine; PCP Family Medicine Sports Medicine; Visit Provider Surgery
PROC: 0DTJ4ZZ Resection of Appendix, Percutaneous Endoscopic Approach (ICD-10-PCS; CPT 44970; principal; 2022-04-06 13:00)
DX: K35.80 Unspecified acute appendicitis (principal); E03.9 Hypothyroidism, unspecified; N83.201 Unspecified ovarian cyst, right side; E66.3 Overweight; Z68.22 Body mass index [BMI] 22.0-22.9, adult; Z20.822 Contact with and (suspected) exposure to COVID-19; Z79.899 Other long term (current) drug therapy
CPT/HCPCS: 44970; 36415; 74177; 80053; 81001; 81025; 83690; 85025; 87077; 87086; 87088; 87636; 88304; 96361; 96365; 96366; 96375; 96376; 99285; A9270; G0378; J0131; J0295; J0330; J1100; J2250; J2270; J2405; J2704; J3010; J7030; J7120; Q9967

== ENCOUNTER 2023-05-24 07:52 | Outpatient (CLI) | payer OTHER, SELFPAY ==
--- NOTE | ~2023-05-24 | US_ITS ---
EXAMINATION: US thyroid DATE: 05/24/2023 09:11 INDICATION: Nontoxic single thyroid nodule. TECHNIQUE: Multiple ultrasound images of the thyroid were obtained. COMPARISON: None. FINDINGS: The right thyroid lobe measures 5.8 x 2.1 x 2.3 cm. The left thyroid lobe measures 6.3 x 2.0 x 2.2 c m. The thyroid demonstrates diffuse heterogeneous hypoechogenicity. No discrete nodule. Vascularity is increased. IMPRESSION: 1. Heterogeneous, hypervascular thyroid, consistent with chronic lymphocytic (Isai) thyroiditis. Reviewed, dictated and finalized at location A. NDANCE OFFICER IMPRESSION: 1. Heterogeneous, hypervascular thyroid, consistent with chronic lymphocytic (H ashimoto) thyroiditis.
--- NOTE | ~2023-05-24 | US_ITS ---
Pelvic ultrasound. Clinical History: Frequent menses Technique: Realtime transabdominal and transvaginal scanning of the pelvis was performed. Color flow Doppler and Doppler spectral analysis were performed. Findings: The uterus is anteverted. The endometrial stripe has a thickness of 6 mm. Cervical nabothi an cysts are present. No focal mass is identified. The right ovary measures 3.3 x 3.2 x 3.1 cm. No significant right ovarian or adnexal mass is seen. The left ovary measures 3.5 x 2.2 x 3.0 cm. No significant left ovarian or adnexal mass is seen. Vascular flow present in both ovaries on Doppler spectral analysis. There is no evidence of free fluid in the cul de sac. Impression: No significant abnormality seen. Reviewed, dictated and finalized at [facility]. ITAL UNIT COORDINATOR Impression: No significant abnormality seen.
== END 2023-05-24 07:53 | disposition home or self-care (01) ==
PROVIDERS: PCP Family Medicine Sports Medicine; Visit Provider Obstetrics & Gynecology
DX: N92.0 Excessive and frequent menstruation with regular cycle (principal); E04.1 Nontoxic single thyroid nodule
CPT/HCPCS: 76536; 76856